=== PATIENT | female | born 1985 | race African-American/Black ===

== ENCOUNTER 2017-03-04 20:56 | Emergency (ER) | payer OTHER ==
[~2017-03-04] VITALS: Ht 170.2 cm; Wt 75.0 kg
[~2017-03-04 20:56] MED LIST: BACT800T5 PO; HYDR-3533 PO; IMIT50TA PO; MAXA10TA2 PO; MELO15TA2 PO; XALA0.00 EACH EYE
[2017-03-04 20:58] VITALS: BP 122/82; PULSE 76; RESP 16; TEMP 98.9; O2SAT 100
--- NOTE | 2017-03-04 21:14 | PD ---
Physical Exam Time Seen by Provider: 21:12 Narrative 31 y/o female here with recent tooth extraction, the extraction site is irritated and "cutting up" her mouth. Also complains of nausea and dizziness for two days, concerned that she has vertigo. VSS seen at triage desk. Awaiting bed placement. Data Data Last Documented VS Vital Signs Date Time Temp Pulse Resp B/P Pulse Ox O2 Delivery O2 Flow Rate FiO2 03/04/17 20:58 98.9 76 16 122/82 100 MDM Medical Record Reviewed: Yes Supervised Visit with THADDEUS: Yes Fredrick Hoffmann Mar 04, 2017 21:14
[2017-03-04 23:19] VITALS: BP 132/77; PULSE 69; RESP 16; O2SAT 99
[2017-03-04] MEDS ORDERED: METOCLOPRAMIDE HCL 10 MG/2 ML VIAL IV PUSH ONE (23:45)
[2017-03-04] MEDS ORDERED: SODIUM CHLORIDE 0.9% FLUSH 10 ML FLUSH IV FLUSH PRN (23:45)
[2017-03-04] MEDS ORDERED: SODIUM CHLOR 0.9% 1000 ML INJ 1,000 ML IV ONE (23:45)
--- NOTE | 2017-03-05 00:05 | PD ---
HPI Chief Complaint: Dizziness Time Seen by Provider: 23:38 Travel History International Travel<30 days: No Contact w/Intl Traveler<30days: No Traveled to known affect area: No History of Present Illness HPI 31-year-old female here for evaluation of nauseous and is and dizziness as well as pain in her mouth. Patient reports feeling as though she is on a boat for the last 2 days. She has not vomited, however has had little to eat or drink because she has felt nauseous. She also tells me that on February 05 she had a right lower posterior molar extracted. For the last 2 days she has noticed a hard spot near the site of the extraction that has been irritating her tongue. She denies fevers. She reports that she is only sexually active with women and therefore cannot be . No urinary symptoms. No abdominal pain. No neck pain or stiffness. PFSH Past Medical History Medical History: Denies Significant Hx Depression: Yes Diminished Hearing: No Tetanus Vaccination: Unknown Influenza Vaccination: No ?: Not LMP: 02/22/17 Past Surgical History Oral Surgery: Yes (WISDOM TEETH) Social History Alcohol Use: Yes Tobacco Use: No Substance Use: No Allergies-Medications (Allergen,Severity, Reaction): Coded Allergies: No Known Allergies (Unverified , 05/07/16) Reported Meds & Prescriptions Reported Meds & Active Scripts Active No Active Prescriptions or Reported Medications Review of Systems Except as stated in HPI: all other systems reviewed are Neg Physical Exam Narrative GENERAL: Well-developed, well-nourished, comfortable, no acute distress. SKIN: Focused skin assessment warm/dry. No rashes. No pallor. HEAD: Atraumatic. Normocephalic. EYES: Pupils equal, round, 3 mm, reactive to light. EOMI. No scleral icterus. No injection or drainage. ENT: No nasal bleeding or discharge. Mucous membranes pink and moist. Bilateral tympanic members and external auditory canals are normal. Medial aspect of the right inferior buccal mucosa with an area that is white and firm, likely bone or an eroding tooth. No intraoral fluctuance or purulent drainage. NECK: Trachea midline. No JVD. No nuchal rigidity. CARDIOVASCULAR: Regular rate and rhythm. RESPIRATORY: No accessory muscle use. Clear to auscultation. Breath sounds equal bilaterally. GASTROINTESTINAL: Abdomen soft, non-tender, nondistended. MUSCULOSKELETAL: No obvious deformities. No clubbing. No cyanosis. No edema. NEUROLOGICAL: Awake and alert. No obvious cranial nerve deficits. Motor grossly within normal limits. Normal speech. PSYCHIATRIC: Appropriate mood and affect; insight and judgment normal. Data Data Last Documented VS Vital Signs Date Time Temp Pulse Resp B/P Pulse Ox O2 Delivery O2 Flow Rate FiO2 03/04/17 23:19 69 16 132/77 99 Room Air 03/04/17 20:58 98.9 Orders Complete Blood Count With Diff (03/04/17 23:44) Comprehensive Metabolic Panel (03/04/17 23:44) Urinalysis - C+S If Indicated (03/04/17 23:44) Iv Access Insert/Monitor (03/04/17 23:44) Ecg Monitoring (03/04/17 23:44) Oximetry (03/04/17 23:44) Sodium Chloride 0.9% Flush (Ns Flush) (03/04/17 23:45) Electrocardiogram (03/04/17 23:44) Ed Urine Pregnancytest Poc (03/04/17 23:44) Metoclopramide Inj (Reglan Inj) (03/04/17 23:45) Sodium Chlor 0.9% 1000 Ml Inj (Ns 1000 M (03/04/17 23:45) Ct Brain W/O Iv Contrast(Rout) (03/04/17 ) Ketorolac Inj (Toradol Inj) (03/05/17 01:00) Labs Laboratory Tests Test 03/05/17 00:00 White Blood Count 9.8 TH/MM3 Red Blood Count 4.54 MIL/MM3 Hemoglobin 13.2 GM/DL Hematocrit 38.9 % Mean Corpuscular Volume 85.7 FL Mean Corpuscular Hemoglobin 29.2 PG Mean Corpuscular Hemoglobin 34.0 % Concent Red Cell Distribution Width 14.4 % Platelet Count 282 TH/MM3 Mean Platelet Volume 8.2 FL Neutrophils (%) (Auto) 53.0 % Lymphocytes (%) (Auto) 35.3 % Monocytes (%) (Auto) 10.4 % Eosinophils (%) (Auto) 0.9 % Basophils (%) (Auto) 0.4 % Neutrophils # (Auto) 5.2 TH/MM3 Lymphocytes # (Auto) 3.4 TH/MM3 Monocytes # (Auto) 1.0 TH/MM3 Eosinophils # (Auto) 0.1 TH/MM3 Basophils # (Auto) 0.0 TH/MM3 CBC Comment DIFF FINAL Differential Comment Urine Color YELLOW Urine Turbidity CLEAR Urine pH 6.0 Urine Specific [place] 1.030 Urine Protein NEG mg/dL Urine Glucose (UA) NEG mg/dL Urine Ketones NEG mg/dL Urine Occult Blood NEG Urine Nitrite NEG Urine Bilirubin NEG Urine Urobilinogen 2.0 MG/DL Urine Leukocyte Esterase TRACE Urine RBC 2 /hpf Urine WBC 1 /hpf Urine Squamous Epithelial 2 /hpf Cells Urine Bacteria RARE /hpf Urine Mucus MOD /lpf Microscopic Urinalysis Comment CULT NOT INDICATED MDM Medical Decision Making Medical Screen Exam Complete: Yes Emergency Medical Condition: Yes Differential Diagnosis Vertigo, intracranial abnormality, UTI, , metabolic abnormality, dental pain Narrative Course Vital signs reviewed and are within normal limits. Urine is negative. CBC is unremarkable. UA is not suggestive of UTI. 12:50 AM: The patient is refusing CT head and is becoming anxious and would like to be discharged. She would also like to be discharged before all of her lab work is resulted. I told her that she would need to sign AMA. She has a capacity to leave AMA. She was told that she can return to the emergency department at any time and should return should she have worsening symptoms or any other concerns. I have advised her to follow-up with her primary care physician this week. AMA: The risks of leaving against medical advice without further evaluation treatment were discussed with the patient. These risks include cardiac dysfunction, cardiac dysrhythmia, possible heart attack, possible stroke or . The patient indicated understanding of these risks and appeared to have the capacity to make this decision. Diagnosis Primary Impression: Left against medical advice Additional Impressions: Nausea Pain, dental Referrals: Dentist 3 days Primary Care Physician 3 days Additional Instructions: Follow-up with your primary care physician this week. Follow-up with your dentist as soon as you are able to. Return to the emergency department for worsening symptoms or any other concerns. Scripts No Active Prescriptions or Reported Meds Disposition: 07 AGAINST MEDICAL ADVICE Cesar Adma MD Mar 05, 2017 00:05
[2017-03-05 00:46] LABS: BACTERIA, URINE RARE /hpf; BLOOD, URINE NEG (NEG); COMMENT (UR) CULT NOT INDICATED; CULTURE IF INDICATED CULT NOT INDICATED; GLUCOSE,URINE NEG (NEG); KETONE, URINE NEG (NEG); MUCUS URINE MOD /lpf (OCC); NITRITE,URINE NEG (NEG); SQUAMOUS EPITHELIAL CELL URINE 2 /hpf (0-5); URINE COLOR YELLOW (YELLW/STRAW)
[2017-03-05 00:47] LABS: AUTOMATED NEUTROPHIL # 5.2 TH/MM3 (1.8-7.7); BASOPHIL % 0.4 % (0.0-2.0); EOSINOPHIL # 0.1 TH/MM3 (0-0.4); EOSINOPHIL % 0.9 % (0.0-4.0); HEMATOCRIT 38.9 % (35.0-46.0); HEMO FLAGS DIFF FINAL; LYMPH % 35.3 % (9.0-44.0); LYMPHOCYTE # 3.4 TH/MM3 (1.0-4.8); MEAN CELL VOLUME 85.7 FL (80.0-100.0); MEAN CORPUSCULAR HEMOGLOBIN 29.2 PG (27.0-34.0); MONO % 10.4 % (0.0-8.0); PLATELET COUNT 282 TH/MM3 (150-450); RED BLOOD COUNT 4.54 MIL/MM3 (4.00-5.30); RED CELL DISTRIBUTION WIDTH 14.4 % (11.6-17.2); WHITE BLOOD COUNT 9.8 TH/MM3 (4.0-11.0)
[2017-03-05] MEDS ORDERED: KETOROLAC TROMETHAMINE 30 MG/ML (IVP) VIAL IV PUSH ONE (01:00)
[2017-03-05 01:04] LABS: ALKALINE PHOSPHATASE 55 U/L (45-117); TOTAL BILIRUBIN ADULT 0.5 MG/DL (0.2-1.0)
[2017-03-05 01:07] LABS: ALT (GPT) 17 U/L (10-53); ANION GAP 9 MEQ/L (5-15); AST (GOT) 15 U/L (15-37); BICARBONATE 25.7 MEQ/L (21.0-32.0); BLOOD UREA NITROGEN 9 MG/DL (7-18); CHLORIDE 105 MEQ/L (98-107); GLOMERULAR FILTRATION RATE 119 ML/MIN (>89); SODIUM (NA) 140 MEQ/L (136-145)
--- NOTE | 2017-03-05 11:53 | EKG ---
Date Performed: 03/05/2017 Time Performed: 00:25:32 PTAGE: 31 years EKG: Sinus rhythm NORMAL ECG NO PREVIOUS TRACING DOCTOR: Min Estrada Interpretating Date/Time 03/05/2017 11:50:43
== END 2017-03-05 01:17 | disposition left against medical advice (07) ==
LOC: NEPD 20:56
DX: R11.0 Nausea (principal); Z53.21 Procedure and treatment not carried out due to patient leaving prior to being seen by health care provider; R42 Dizziness and giddiness; K08.89 Other specified disorders of teeth and supporting structures
CPT/HCPCS: 80053; 81001; 84703; 85025; 93005; 96374; 96375; 99284; J1885; J2765; J7030